=== PATIENT | female | born 1960 | race Caucasian/White ===

== ENCOUNTER 2020-09-27 16:50 | Emergency (ER) | payer OTHER ==
[2020-09-27] MEDS ORDERED: CLEOCIN300 MG PO (18:40)
== END 2020-09-27 19:05 | disposition home or self-care (01) ==
LOC: FER 16:50
DX: J69.0 Pneumonitis due to inhalation of food and vomit (principal); I10 Essential (primary) hypertension; K21.9 Gastro-esophageal reflux disease without esophagitis; M54.5 Low back pain; G89.29 Other chronic pain; Z79.899 Other long term (current) drug therapy; Z79.891 Long term (current) use of opiate analgesic; Z88.2 Allergy status to sulfonamides; Z88.1 Allergy status to other antibiotic agents; Z88.8 Allergy status to other drugs, medicaments and biological substances
CPT/HCPCS: 71250; 94010

== ENCOUNTER 2020-10-08 16:23 | Inpatient (IN) | payer OTHER ==
[~2020-10-08 16:23] MED LIST: CLEOCIN300 MG PO
[2020-10-08 17:13] LABS: BASOPHIL 0.2 % (0-2); EOSINOPHIL 0.7 % (0-5); HCT 38.7 % (37.0-47.0); HGB 11.8 g/dl (12.5-16.0); MCH 29.5 pg (25.0-31.0); MCHC 30.5 g/dL (32.0-36.0); MCV 96.8 fL (78.0-100.0); MONOCYTE 10.2 % (0-12); MPV 8.8 fL (6.0-9.5); NEUTROPHIL 61.5 % (41-80); NRBC 0; PLT 473 K/uL (150-400); RDW 12.4 % (11.5-14.0); WBC 5.4 K/uL (4.0-10.5)
[2020-10-08 17:23] LABS: ALBUMIN 2.6 g/dL (3.4-5.0); BILIRUBIN - TOTAL 0.2 mg/dL (0.2-1.0); BUN/CREAT RATIO (CALC) 11.5 RATIO; C-REACTIVE PROTEIN 3.4 mg/dL (<=0.90); CREATININE 0.78 mg/dL (0.51-0.95); MAGNESIUM 1.9 mg/dL (1.8-2.4); POTASSIUM 3.6 mmol/L (3.5-5.1); TOTAL PROTEIN 6.6 g/dL (6.4-8.2)
[2020-10-08 17:24] LABS: INR 1.42 (0.9-1.2); PROTHROMBIN TIME 16.5 SECONDS (11.4-13.6)
[2020-10-08 17:26] LABS: D-DIMER 0.57 ug/mLFEU (0.00-0.41)
[2020-10-08 17:30] LABS: PRO-BNP 55 pg/mL (<125)
[2020-10-08 17:45] LABS: CORONAVIRUS 2019 SARS-COV-2 POSITIVE (NEGATIVE); INFLUENZA A NAA NEGATIVE (NEGATIVE)
[2020-10-09] MEDS ORDERED: TRAZODONE HCL150 MG PO (00:01)
[2020-10-09] MEDS ORDERED: FLONASE ALLER15.8 ML (00:01)
[2020-10-09] MEDS ORDERED: ZANAFLEX4 M1 PO (00:02)
[2020-10-09] MEDS ORDERED: PRILOSEC20 MG PO (00:02)
[2020-10-09] MEDS ORDERED: PRINIVIL10 MG PO ×2 (00:03→00:04)
[2020-10-09] MEDS ORDERED: SINGULAIR10 MG PO (00:04)
[2020-10-09] MEDS ORDERED: MYSOLINE50 MG PO (00:05)
[2020-10-09] MEDS ORDERED: KEFLEX250 MG PO (00:05)
[2020-10-09] MEDS ORDERED: SAVELLA100 MG PO (00:05)
[2020-10-09 07:13] LABS: BASOPHIL 0.3 % (0-2); EOSINOPHIL 0 % (0-5); HGB 10.7 g/dl (12.5-16.0); MCH 29.9 pg (25.0-31.0); MCHC 31.5 g/dL (32.0-36.0); MONOCYTE 8.7 % (0-12); NEUTROPHIL 55.7 % (41-80); NRBC 0; PLT 467 K/uL (150-400); RBC 3.58 M/uL (4.20-5.40); RDW 12.1 % (11.5-14.0)
[2020-10-09 07:55] LABS: ALBUMIN 2.4 g/dL (3.4-5.0); BILIRUBIN - TOTAL 0.2 mg/dL (0.2-1.0); BUN/CREAT RATIO (CALC) 11.4 RATIO; CREATININE 0.7 mg/dL (0.51-0.95); GLOBULIN (CALCULATION) 3.9 g/dL; POTASSIUM 4.2 mmol/L (3.5-5.1); TOTAL PROTEIN 6.3 g/dL (6.4-8.2)
--- NOTE | 2020-10-09 14:51 | NUR ---
Patient triggered for nutrition screening 2' MST of 4. Current anthropometrics: Ht 67", wt 230lb,104.5 kg; reports UBW 232lb currently on regular diet consuming 100%. H&P reports decreased appetite upon ER visit; RD will monitor for % intake and recommendations. f/u this wk.
[2020-10-11 04:00] LABS: BASOPHIL 0.2 % (0-2); EOSINOPHIL 0.7 % (0-5); HCT 36.6 % (37.0-47.0); HGB 11.1 g/dl (12.5-16.0); LYMPHOCYTE 35.5 % (15-48); MCH 29.8 pg (25.0-31.0); MCHC 30.3 g/dL (32.0-36.0); MCV 98.1 fL (78.0-100.0); MONOCYTE 10.1 % (0-12); MPV 8.8 fL (6.0-9.5); NEUTROPHIL 53.3 % (41-80); NRBC 0; PLT 621 K/uL (150-400); RBC 3.73 M/uL (4.20-5.40); RDW 12.7 % (11.5-14.0)
[2020-10-11 04:01] LABS: WBC 5.6 K/uL (4.0-10.5)
[2020-10-11 04:18] LABS: ALBUMIN 2.6 g/dL (3.4-5.0); BILIRUBIN - TOTAL 0.2 mg/dL (0.2-1.0); BUN/CREAT RATIO (CALC) 9.2 RATIO; CREATININE 0.76 mg/dL (0.51-0.95); GLOBULIN (CALCULATION) 4.1 g/dL; POTASSIUM 4.2 mmol/L (3.5-5.1); TOTAL PROTEIN 6.7 g/dL (6.4-8.2)
[2020-10-11] MEDS ORDERED: VITAMIN D325 MC1 PO (08:58)
[2020-10-11] MEDS ORDERED: ZINC SULFATE220 M1 PO (08:58)
[2020-10-11] MEDS ORDERED: MEDROL 4MG DOSEP4 MG PO (08:58)
[2020-10-11] MEDS ORDERED: DIFLUCAN150 MG PO (08:58)
[2020-10-11] MEDS ORDERED: AZITHROMYCIN250 MG PO (08:58)
[2020-10-11] MEDS ORDERED: ASCORBIC ACID500 MG PO (08:58)
--- NOTE | 2020-10-11 10:28 | NUR ---
10/11/20 Ms. Hester lives with her spouse. She has a C-PAP. A referral was made to [facility] per patient choice; affliation explained. A referral was made to [facility] for and and adaptor to link to C-PAP at night. Report given to MS JAVY Brown.
--- NOTE | 2020-10-11 11:33 | NUR ---
patient given d/c instructions, verbalized understanding. home o2 tank in room, edcucated patient on use. 1 home medication given back to patient.
== END 2020-10-11 11:50 | disposition home or self-care (01) | DRG 177 ==
LOC: FER 16:23 → FMS 19:17
PROVIDERS: Allergy & Immunology Allergy; Emergency Medicine; Nurse Practitioner; ADMIT Internal Medicine
PROC: 8E0ZXY6 Isolation (ICD-10-PCS; principal; 2020-10-08)
PROC: XW033E5 Introduction of Remdesivir Anti-infective into Peripheral Vein, Percutaneous Approach, New Technology Group 5 (ICD-10-PCS; 2020-10-08)
PROC: 3E0333Z Introduction of Anti-inflammatory into Peripheral Vein, Percutaneous Approach (ICD-10-PCS; 2020-10-08)
DX: U07.1 COVID-19 (principal); J12.82 Pneumonia due to coronavirus disease 2019; J96.01 Acute respiratory failure with hypoxia; K21.9 Gastro-esophageal reflux disease without esophagitis; I10 Essential (primary) hypertension; F41.9 Anxiety disorder, unspecified; M19.90 Unspecified osteoarthritis, unspecified site; G89.29 Other chronic pain; Z96.659 Presence of unspecified artificial knee joint; B37.9 Candidiasis, unspecified; F32.9 Major depressive disorder, single episode, unspecified; Z90.49 Acquired absence of other specified parts of digestive tract; Z98.84 Bariatric surgery status; Z90.710 Acquired absence of both cervix and uterus; Z98.890 Other specified postprocedural states
CPT/HCPCS: 36415; 36600; 71250; 80053; 82728; 82803; 83605; 83615; 83735; 83880; 84145; 84484; 85025; 85379; 85610; 86140; 87040; 93005; 94640; 97110; 97116; 97162; 97530-GP; C9399; G0378; J1100; J1650; J2543; J7030; J7050; U0002

== ENCOUNTER 2021-04-27 18:33 | Emergency (ER) | payer OTHER ==
[~2021-04-27 18:33] MED LIST changes: +ASCORBIC ACID500 MG PO; +AZITHROMYCIN250 MG PO; +DIFLUCAN150 MG PO; +FLONASE ALLER15.8 ML; +KEFLEX250 MG PO; +MEDROL 4MG DOSEP4 MG PO; +MYSOLINE50 MG PO; +PRILOSEC20 MG PO; +PRINIVIL10 MG PO; +SAVELLA100 MG PO; +SINGULAIR10 MG PO; +TRAZODONE HCL150 MG PO; +VITAMIN D325 MC1 PO; +ZANAFLEX4 M1 PO; +ZINC SULFATE220 M1 PO
[2021-04-27 22:29] LABS: BASOPHIL 0.4 % (0-2); EOSINOPHIL 2.8 % (0-5); HCT 37.2 % (37.0-47.0); HGB 11.7 g/dl (12.5-16.0); LYMPHOCYTE 22.9 % (15-48); MCH 30.5 pg (25.0-31.0); MCHC 31.5 g/dL (32.0-36.0); MCV 97.1 fL (78.0-100.0); MONOCYTE 7.7 % (0-12); MPV 9.1 fL (6.0-9.5); NEUTROPHIL 65.8 % (41-80); NRBC 0; PLT 351 K/uL (150-400); RBC 3.83 M/uL (4.20-5.40); RDW 12.9 % (11.5-14.0); WBC 11.2 K/uL (4.0-10.5)
[2021-04-27 22:39] LABS: BILIRUBIN NEGATIVE (NEGATIVE); BLOOD NEGATIVE Ery/uL (NEGATIVE); CLARITY CLEAR (CLEAR); COLOR YELLOW (YELLOW); GLUCOSE (U) NORMAL (NORMAL); LEUKOCYTES NEGATIVE Leu/uL (NEGATIVE); NITRITE NEGATIVE (NEGATIVE); PROTEIN NEGATIVE (NEGATIVE); SPECIFIC GRAVITY <=1.005 (1.001-1.030); UROBILINOGEN 0.2 mg/dL (0.2-1.0); pH 5.5 (5.0-9.0)
[2021-04-27 22:56] LABS: PRO-BNP 96 pg/mL (<125)
[2021-04-27 23:03] LABS: ALBUMIN 3.5 g/dL (3.4-5.0); BILIRUBIN - TOTAL 0.2 mg/dL (0.2-1.0); C-REACTIVE PROTEIN 8.3 mg/dL (<=0.90); CREATININE 1.08 mg/dL (0.51-0.95); GLOBULIN (CALCULATION) 3.7 g/dL; MAGNESIUM 2.1 mg/dL (1.8-2.4); POTASSIUM 4.6 mmol/L (3.5-5.1); TOTAL PROTEIN 7.2 g/dL (6.4-8.2)
[2021-04-28] MEDS ORDERED: PULMICORT0.5 MG/22 INH (01:14)
[2021-04-28] MEDS ORDERED: NORCO 5-325 TA1 EACH PO (01:14)
[2021-04-28] MEDS ORDERED: AZITHROMYCIN250 MG PO (01:14)
== END 2021-04-28 01:28 | disposition home or self-care (01) ==
LOC: FER 18:33
PROVIDERS: Emergency Medicine
DX: J18.9 Pneumonia, unspecified organism (principal); I21.4 Non-ST elevation (NSTEMI) myocardial infarction; Z86.16 Personal history of COVID-19; Z20.822 Contact with and (suspected) exposure to COVID-19
CPT/HCPCS: 36415; 71275; 80053; 81003; 82728; 83735; 83880; 84145; 84484; 85025; 85379; 86140; 87088; 93005; J0696; J1170; J1885; J2405; J7030; Q9967; U0002

== ENCOUNTER → 2021-12-31 | Day surgery (SDC) | payer OTHER ==
[~2021-12-31] VITALS: Ht 170.2 cm; Wt 104.4 kg
[~2021-12-31] MED LIST changes: +FLECAINIDE ACET50 MG PO; +MOBIC7.5 MG PO; +MORPHINE PAIN PUMP; +NEURIVA ORIGIN1 EACH PO; +NEURONTIN100 MG PO; +NORCO 5-325 TA1 EACH PO; +PROAIR HFA8.5 GM INH; +PROBIOTIC1 EAC1 PO; +PULMICORT0.5 MG/22 INH; +VIACTIV 650 MG1 EACH PO; +VIBRAMYCIN100 MG PO; +VITAMIN B-121000 MC1 PO; +ZYRTEC10 MG PO
[2021-12-31 14:02] LABS: HCT 35.3 % (37.0-47.0); HGB 11.1 g/dl (12.5-16.0); MCH 30.5 pg (25.0-31.0); MCHC 31.4 g/dL (32.0-36.0); MPV 9.3 fL (6.0-9.5); RBC 3.64 M/uL (4.20-5.40); RDW 12.7 % (11.5-14.0); WBC 6.7 K/uL (4.0-10.5)
[2021-12-31 14:40] LABS: BUN/CREAT RATIO (CALC) 21.3 RATIO; CREATININE 1.36 mg/dL (0.51-0.95); POTASSIUM 4.5 mmol/L (3.5-5.1)
== END | disposition home or self-care (01) ==
LOC: FAS 12:59
PROVIDERS: Anesthesiology; Legal Medicine
DX: M79.89 Other specified soft tissue disorders (principal); Z88.1 Allergy status to other antibiotic agents; Z88.2 Allergy status to sulfonamides; Z88.8 Allergy status to other drugs, medicaments and biological substances
CPT/HCPCS: 36415; 80048; 87070; 87075; 87205; J0690; J1885; J2250; J2405; J2704; J2795; J3010; J3260; J7120

== ENCOUNTER 2022-05-09 18:45 | Emergency (ER) | payer MEDICARE | END 2022-05-09 21:18 | disposition home or self-care (01) | LOC: FER 18:45 | DX: M85.88 Other specified disorders of bone density and structure, other site (principal); G89.29 Other chronic pain; M54.9 Dorsalgia, unspecified; Z88.1 Allergy status to other antibiotic agents; Z88.8 Allergy status to other drugs, medicaments and biological substances | CPT/HCPCS: 72125; 96372; J1170; J2405 ==